=== PATIENT | male | born 1950 | race Caucasian/White ===

== ENCOUNTER 2018-12-26 01:52 | Emergency (ER) | payer OTHER ==
[2018-12-26] MEDS ORDERED: ONDANSETRON HCL INJ/PF 4 MG/2 ML SDV IV ONE (02:33)
[2018-12-26] MEDS ORDERED: FENTANYL CITRATE INJ/PF 100 MCG/2 ML AMPUL IV ONE ×2 (02:33→05:50)
--- NOTE | 2018-12-26 02:36 | ER Document Report ---
ED Medical Screen (RME) - General Chief Complaint: Groin Pain Stated Complaint: ABDOMINAL PAIN Time Seen by Provider: 12/26/18 02:32 Primary Care Provider: JENIFER YOUNG MD [Primary Care Provider] - Follow up as needed Notes: 68 year old male with chief complaint of sudden onset right-sided abdominal pain. He reports nausea but denies vomiting. Denies history of kidney stones, denies flank pain. Past medical history includes cholecystectomy, hernia repair. Also has type 2 diabetes, hypertension. TRAVEL OUTSIDE OF THE [place] IN LAST 30 DAYS: No - Related Data Allergies/Adverse Reactions: latex [Latex] Allergy (Verified 12/26/18 01:57) Past Medical History - Past Medical History Cardiac Medical History: Reports: Hx Hypercholesterolemia, Hx Hypertension - meds x20 yrs Denies: Hx Coronary Artery Disease, Hx Heart Attack Pulmonary Medical History: Reports: Hx Pneumonia - Yrs ago Denies: Hx Asthma, Hx Bronchitis, Hx COPD, Hx Tuberculosis Neurological Medical History: Denies: Hx Cerebrovascular Accident, Hx Seizures Renal/ Medical History: Denies: Hx Benign Prostatic Hyperplasia, Hx End Stage Renal Disease, Hx Kidney Stones, Hx Peritoneal Dialysis GI Medical History: Reports: Hx Gastroesophageal Reflux Disease, Hx Hiatal Hernia. Denies: Hx Crohn's Disease, Hx Irritable Bowel, Hx Liver Failure, Hx Pancreatitis, Hx Ulcer Musculoskeltal Medical History: Reports Hx Arthritis - Hands, knees, Denies Hx Fibromyalgia, Denies Hx Muscular Dystrophy Traumatic Medical History: Denies: Hx Fractures Past Surgical History: Reports: Hx Cholecystectomy, Hx Tonsillectomy. Denies: Hx Appendectomy, Hx Bowel Surgery, Hx Colostomy, Hx Coronary Artery Bypass Graft, Hx Gastric Bypass Surgery, Hx Herniorrhaphy, Hx Pacemaker - Immunizations Hx Diphtheria, Pertussis, Tetanus Vaccination: Yes - Unsure if it was tetanus only Physical Exam - Vital signs Vitals: Temp Pulse Resp BP Pulse Ox 97.6 F 52 L 22 H 169/68 H 96 12/26/18 02:03 12/26/18 02:03 12/26/18 02:03 12/26/18 02:03 12/26/18 02:03 - Abdominal Tenderness: Tender - Tender in the right lower abdomen, there appears to be an incarcerated right inguinal hernia that I cannot reduce in triage Course - Re-evaluation Re-evalutation: Exam very concerning for incarcerated right inguinal hernia. Upgraded to triage level 2, called charge nurse and requested room immediately. I have greeted and performed a rapid initial assessment of this patient. A comprehensive ED assessment and evaluation of the patient, analysis of test results and completion of the medical decision making process will be conducted by additional ED providers. - Vital Signs Vital signs: Temp Pulse Resp BP Pulse Ox 97.6 F 52 L 22 H 169/68 H 96 12/26/18 02:03 12/26/18 02:03 12/26/18 02:03 12/26/18 02:03 12/26/18 02:03 Doctor's Discharge - Discharge Referrals: JENIFER YOUNG MD [Primary Care Provider] - Follow up as needed
--- NOTE | 2018-12-26 02:45 | ER Document Report ---
ED General - General Chief Complaint: Groin Pain Stated Complaint: ABDOMINAL PAIN Time Seen by Provider: 12/26/18 02:32 Primary Care Provider: JENIFER YOUNG MD [ACTIVE STAFF] - Follow up as needed Notes: Patient is a 68-year-old male with hypertension and diabetes mellitus that presents to the emergency department for chief complaint of inguinal hernia and pain. Patient states that his pain started this evening, he noticed swelling in his right groin, started around 8 PM, more than he is ever noticed before, he a lways had a small bulge there, because he had a prior hernia repair in the past, but it got significantly larger this past evening. He has associated nausea, borderline dry heaving, but no vomiting. He denies having any recent fevers, chills, night sweats, chest pain, shortness of breath or difficulty breathing. He currently rates his pain as a 10 out of 10 describes it as a severe stabbing type pain, and his right groin, that is constant in nature. Past Medical History: Hypertension, diabetes mellitus Past Surgical History: Hernia repair, cholecystectomy Social History: Denies tobacco, alcohol or drug use. Family History: Reviewed and noncontributory for presenting illness Allergies: Reviewed, see documented allergy list. REVIEW OF SYSTEMS: Other than noted above, the 12 point review of systems was reviewed with the patient and were negative, all pertinent findings are included in the HPI. PHYSICAL EXAMINATION: Vital signs reviewed, nursing noted reviewed. GENERAL: Patient appears uncomfortable on exam, but in no immediate distress HEAD: Atraumatic, normocephalic. EYES: Eyes appear normal, extraocular movements intact, sclera anicteric, conjunctiva are normal. ENT: nares patent, oropharynx clear without exudates. Moist mucous membranes. NECK: Normal range of motion, supple without lymphadenopathy LUNGS: Breath sounds clear to auscultation bilaterally and equal. No wheezes rales or rhonchi. HEART: Regular rate and rhythm without murmurs ABDOMEN: Soft, diminished bowel sounds, hypoactive, there is a right palpable inguinal hernia, which I am unable to reduce, at bedside, there is tenderness with palpation to this area. EXTREMITIES: Nontender, good range of motion, no pitting or edema. NEUROLOGICAL: No focal neurological deficits. Moves all extremities spontaneously Motor and sensory grossly intact on exam. PSYCH: Normal mood, normal affect. SKIN: Warm, Dry, normal turgor, no rashes or lesions noted on exposed skin TRAVEL OUTSIDE OF THE [place] IN LAST 30 DAYS: No - Related Data Allergies/Adverse Reactions: latex [Latex] Allergy (Verified 12/26/18 01:57) Past Medical History - Social History Smoking Status: Never Smoker Family History: Reviewed & Not Pertinent - Past Medical History Cardiac Medical History: Reports: Hx Hypercholesterolemia, Hx Hypertension - meds x20 yrs Denies: Hx Coronary Artery Disease, Hx Heart Attack Pulmonary Medical History: Reports: Hx Pneumonia - Yrs ago Denies: Hx Asthma, Hx Bronchitis, Hx COPD, Hx Tuberculosis Neurological Medical History: Denies: Hx Cerebrovascular Accident, Hx Seizures Renal/ Medical History: Denies: Hx Benign Prostatic Hyperplasia, Hx End Stage Renal Disease, Hx Kidney Stones, Hx Peritoneal Dialysis GI Medical History: Reports: Hx Gastroesophageal Reflux Disease, Hx Hiatal Her patti. Denies: Hx Crohn's Disease, Hx Irritable Bowel, Hx Liver Failure, Hx Pancreatitis, Hx Ulcer Musculoskeletal Medical History: Reports Hx Arthritis - Hands, knees, Denies Hx Fibromyalgia, Denies Hx Muscular Dystrophy Traumatic Medical History: Denies: Hx Fractures Past Surgical History: Reports: Hx Cholecystectomy, Hx Tonsillectomy. Denies: Hx Appendectomy, Hx Bowel Surgery, Hx Colostomy, Hx Coronary Artery Bypass Gr aft, Hx Gastric Bypass Surgery, Hx Herniorrhaphy, Hx Pacemaker - Immunizations Hx Diphtheria, Pertussis, Tetanus Vaccination: Yes - Unsure if it was tetanus only Hx Pneumococcal Vaccination: 05/05/09 Physical Exam - Vital signs Vitals: Temp Pulse Resp BP Pulse Ox 97.6 F 52 L 22 H 169/68 H 96 12/26/18 02:03 12/26/18 02:03 12/26/18 02:03 12/26/18 02:03 12/26/18 02:03 Course - Re-evaluation Re-evalutation: Patient seen and examined vital signs reviewed. Laboratory data and imaging were ordered as appropriate for the patient's presenting symptoms and complaint, with consideration of any critical or life threatening conditions that may be associated with their obtained history and exam as noted above. Patient was treated with IV fluids, IV fentanyl, and Zofran, a call was placed to the surgeon, as he could not initially reduce the patient's hernia, wanted to make him aware that the patient had an incarcerated hernia, he requested that I order CT imaging with oral contrast. Results were reviewed when available and demonstrated unremarkable blood work for the most part, negative lactic acid, CT imaging was ordered, that demonstrated a bowel containing right inguinal hernia, with air-fluid levels in the small bowel, and the distal colon appeared to be decompressed as well, concerning for incarcerated hernia. The patient was re-evaluated and was improved from a pain standpoint, despite Trendelenburg, and attempts to reduce the patient's hernia, these were u nsuccessful, at this point call was placed to surgery, and they did come to see the patient and evaluated them. Evaluation was most consistent with incarcerated inguinal hernia Results were discussed with the patient at this point after careful consideration I feel that that patient should be admitted to the hospital. This was discussed with the patient that it is in the best interest for their care to be admitted for further evaluation and management. Patient agreed with this plan of care. A call was placed to the admitted physician, Dr. Levine who graciously accepted the patient onto their service, with plan for operative management. Patient was kept n.p.o. during his entire ED course with the exception of his oral contrast. *Note is created using voice recognition software and may contain spelling, syntax or grammatical errors. Laboratory 12/26/18 12/26/18 12/26/18 03:03 03:03 03:03 WBC 7.2 RBC 4.75 Hgb 13.0 L Hct 39.3 MCV 83 MCH 27.4 MCHC 33.1 RDW 14.3 H Plt Count 160 Seg Neutrophils % 86.3 H Lymphocytes % 9.1 L Monocytes % 4.1 Eosinophils % 0.1 Basophils % 0.4 Absolute Neutrophils 6.2 Absolute Lymphocytes 0.7 Absolute Monocytes 0.3 Absolute Eosinophils 0.0 Absolute Basophils 0.0 Sodium 139.8 Potassium 4.0 Chloride 104 Carbon Dioxide 26 Anion Gap 10 BUN 22 H Creatinine 1.05 Est GFR ( Amer) > 60 Est GFR (Non-Af Amer) > 60 Glucose 163 H Lactic Acid 1.7 Calcium 9.9 Total Bilirubin 0.4 Direct Bilirubin 0.4 Neonat Total Bilirubin Not Reportable Neonat Direct Bilirubin Not Reportable Neonat Indirect Bili Not Reportable AST 25 ALT 29 Alkaline Phosphatase 67 Total Protein 6.9 Albumin 4.2 Abdomen/Pelvis CT 12/26/18 03:25 IMPRESSION: Right inguinal hernia containing short segment of small bowel, causing mild small bowel obstruction. - Vital Signs Vital signs: Temp Pulse Resp BP Pulse Ox 97.6 F 52 L 22 H 152/72 H 98 12/26/18 02:03 12/26/18 02:03 12/26/18 02:03 12/26/18 05:01 12/26/18 05:01 - Laboratory Result Diagrams: 12/26/18 03:03 12/26/18 03:03 Laboratory results interpreted by me: 12/26/18 12/26/18 03:03 03:03 Hgb 13.0 L RDW 14.3 H Seg Neutrophils % 86.3 H Lymphocytes % 9.1 L BUN 22 H Glucose 163 H Discharge - Discharge Clinical Impression: Incarcerated inguinal hernia, Small bowel obstruction Condition: Stable Disposition: ADMITTED INPATIENT Admitting Provider: Surgicalist - Dr. Levine Unit Admitted: Surgical Floor Referrals: JENIFER YOUNG MD [ACTIVE STAFF] - Follow up as needed
[2018-12-26 03:15] LABS: ABSOLUTE LYMPHOCYTES (AUTO) 0.7 10^3/uL (0.5-4.7); ABSOLUTE MONOCYTES (AUTO) 0.3 10^3/uL (0.1-1.4); ABSOLUTE NEUT (AUTO) 6.2 10^3/uL (1.7-8.2); BASOPHILS % (AUTO) 0.4 % (0-2); EOSINOPHILS % (AUTO) 0.1 % (0-6); HEMATOCRIT 39.3 % (37.9-51.0); LYMPHOCYTES % (AUTO) 9.1 % (13-45); MEAN CORPUSCULAR HEMOGLOBIN 27.4 pg (27.0-33.4); MEAN CORPUSCULAR HGB CONC 33.1 g/dL (32.0-36.0); MEAN CORPUSCULAR VOLUME 83 fl (80-97); MONOCYTES % (AUTO) 4.1 % (3-13); PLATELET COUNT 160 10^3/uL (150-450); RED BLOOD COUNT 4.75 10^6/uL (4.35-5.55); RED CELL DISTRIBUTION WIDTH 14.3 % (11.5-14.0); SEGMENTED NEUTROPHILS % (AUTO) 86.3 % (42-78); TOTAL CELLS COUNTED % (AUTO) 100 %; WHITE BLOOD COUNT 7.2 10^3/uL (4.0-10.5)
[2018-12-26 03:30] LABS: ALANINE AMINOTRANSFERASE 29 U/L (21-72); ALBUMIN 4.2 g/dL (3.5-5.0); ALKALINE PHOSPHATASE 67 U/L (38-126); ANION GAP 10 (5-19); ASPARTATE AMINO TRANSFERASE 25 U/L (17-59); BILIRUBIN,DIRECT 0.4 mg/dL (0.0-0.4); BILIRUBIN,TOTAL 0.4 mg/dL (0.2-1.3); BLOOD UREA NITROGEN 22 mg/dL (7-20); CALCIUM 9.9 mg/dL (8.4-10.2); CARBON DIOXIDE 26 mmol/L (22-30); CHLORIDE 104 mmol/L (98-107); GLUCOSE 163 mg/dL (75-110); SODIUM 139.8 mmol/L (137-145); TOTAL PROTEIN 6.9 g/dL (6.3-8.2)
--- NOTE | 2018-12-26 06:19 | RADIOLOGY REPORT (SQ) ---
CLINICAL HISTORY: right inguinal hernia COMPARISON: None. TECHNIQUE: CT ABDOMEN PELVIS WITHOUT IV CONTRAST on 12/26/2018 3:25 AM CDT This exam was performed according to our departmental dose-optimization program, which includes automated exposure control, adjustment of the mA and/or kV according to patient size and/or use of iterative reconstruction technique. FINDINGS: Lower lungs are clear. Abdomen: The liver is normal in appearance. There is no biliary dilatation. Cholecystectomy was performed. Stomach is distended. There is mild pneumobilia. The pancreas and spleen are normal in appearance. There is mild fullness of the renal collecting systems. Adrenal glands are normal. Abdominal aorta is normal in course and caliber without aneurysm. There is no free air. There is no retroperitoneal adenopathy. Pelvis: Small bowel proximal to the hernia is dilated. Urinary bladder is mildly distended. There is no free fluid. Prostate is enlarged measuring 6.8 cm. There is a small fat-containing left inguinal hernia. Right inguinal hernia contains portion of the distal small bowel. Appendix is normal. Skeleton: There are no acute osseous findings. No suspicious bony lesions. IMPRESSION: Right inguinal hernia containing short segment of small bowel, causing mild small bowel obstruction.
[2018-12-26] MEDS ORDERED: NORMAL SALINE 1000 ML 1,000 ML IV ONE (06:20)
[2018-12-26 06:28] VITALS: BP 153/79
--- NOTE | 2018-12-26 06:44 | PDOC H&P ---
History of Present Illness Admission Date/PCP: GASTON FORTUNE MD Patient complains of: right inguinal pains History of Present Illness: MICKIE TAVERAS is a 68 year old male with history of DM and hypertension suddenly c/o painful lump on the right inguinal area associated with nausea at 8 pm last night. Had history of right inguinal hernia 20 years ago. Unable to reduce right inguinal hernia in ED. Had CT scan of abd/pelvis which showed incarcerated right inguinal hernia with some air fluid levels in small bowel that are slightly dilated indicating some obstruction. . Past Medical History Cardiac Medical History: Reports: Hyperlipidema, Hypertension - meds x20 yrs Denies: Coronary Artery Disease, Myocardial Infarction Pulmonary Medical History: Reports: Pneumonia - Yrs ago Denies: Asthma, Bronchitis, Chronic Obstructive Pulmonary Disease (COPD), Tuberculosis Neurological Medical History: Denies: Seizures Renal/ Medical History: Denies: End Stage Renal Disease GI Medical History: Reports: Gastroesophageal Reflux Disease, Hiatal Hernia Denies: Crohn's Disease Musculoskeltal Medical History: Reports: Arthritis - Hands, knees Denies: Fibromyalgia Hematology: Denies: Anemia Past Surgical History Past Surgical History: Reports: Cholecystectomy, Tonsillectomy Denies: Appendectomy, Colostomy, Coronary Artery Bypass Graft, Gastric Bypass Surgery, Herniorrhaphy, Pacemaker Social History Smoking Status: Never Smoker Hx Recreational Drug Use: No Hx Prescription Drug Abuse: No Family History Family History: Reviewed & Not Pertinent Parental Family History Reviewed: Yes Children Family History Reviewed: No Sibling(s) Family History Reviewed.: No Medication/Allergy Home Medications: Doxycycline Hyclate 100 mg PO BID 06/04/12 Lisinopril/Hydrochlorothiazide [Zestoretic 20-12.5 Mg Tablet] 1 tab PO DAILY 06/04/12 Fenofibrate,Micronized [Lofibra] 145 mg PO DAILY 07/20/15 Omeprazole [Prilosec] 40 mg PO DAILY 07/20/15 Sucralfate [Carafate 1 gm Tablet] 1 gm PO ACHS #120 tablet 07/20/15 Tramadol HCl 50 mg PO BID 08/09/15 Allergies/Adverse Reactions: latex [Latex] Allergy (Verified 12/26/18 01:57) Review of Systems Constitutional: PRESENT: as per HPI, other - no fever/chills Ears: PRESENT: other - no visual/hearing changes Cardiovascular: PRESENT: other - no chest pains/cough Gastrointestinal: PRESENT: other - right inguinal pains with nausea Physical Exam Vital Signs: Temp Pulse Resp BP Pulse Ox 97.6 F 52 L 22 H 153/79 H 97 12/26/18 02:03 12/26/18 02:03 12/26/18 02:03 12/26/18 06:01 12/26/18 06:01 Intake & Output 12/24/18 12/25/18 12/26/18 06:59 06:59 06:59 Output Total 625 Balance -625 Weight 88.451 kg General appearance: PRESENT: mild distress Head exam: PRESENT: atraumatic Eye exam: PRESENT: conjunctiva pink Mouth exam: PRESENT: moist Neck exam: PRESENT: full ROM Respiratory exam: PRESENT: clear to auscultation yahir Cardiovascular exam: PRESENT: RRR Pulses: PRESENT: normal radial pulses Vascular exam: PRESENT: normal capillary refill GI/Abdominal exam: PRESENT: soft, tenderness - right groin mass,irreducible Rectal exam: PRESENT: deferred Extremities exam: PRESENT: full ROM Musculoskeletal exam: PRESENT: ambulatory Neurological exam: PRESENT: alert, oriented to person, oriented to place, oriented to time, oriented to situation Psychiatric exam: PRESENT: appropriate affect Skin exam: PRESENT: normal color, warm Results Laboratory Results: 12/26/18 03:03 12/26/18 03:03 12/26/18 12/26/18 12/26/18 03:03 03:03 03:03 WBC 7.2 RBC 4.75 Hgb 13.0 L Hct 39.3 MCV 83 MCH 27.4 MCHC 33.1 RDW 14.3 H Plt Count 160 Seg Neutrophils % 86.3 H Lymphocytes % 9.1 L Monocytes % 4.1 Eosinophils % 0.1 Basophils % 0.4 Absolute Neutrophils 6.2 Absolute Lymphocytes 0.7 Absolute Monocytes 0.3 Absolute Eosinophils 0.0 Absolute Basophils 0.0 Sodium 139.8 Potassium 4.0 Chloride 104 Carbon Dioxide 26 Anion Gap 10 BUN 22 H Creatinine 1.05 Est GFR ( Amer) > 60 Est GFR (Non-Af Amer) > 60 Glucose 163 H Lactic Acid 1.7 Calcium 9.9 Total Bilirubin 0.4 AST 25 ALT 29 Alkaline Phosphatase 67 Total Protein 6.9 Albumin 4.2 Impressions: Abdomen/Pelvis CT 05/24/19 03:25 IMPRESSION: Right inguinal hernia containing short segment of small bowel, causing mild small bowel obstruction. Assessment & Plan - Diagnosis (1) DM Is this a current diagnosis for this admission?: Yes (2) Incarcerated inguinal hernia Is this a current diagnosis for this admission?: Yes (3) Small bowel obstruction Is this a current diagnosis for this admission?: Yes - Time Time Spent: 30 to 50 Minutes - Inpatient Certification Medical Necessity: Need for Surgery - Plan Summary Plan Summary: Hydrate For reduction and repair of incarcerated right inguinal hernia
--- NOTE | 2018-12-26 07:27 | RADIOLOGY REPORT (SQ) ---
EXAM DESCRIPTION: XR CHEST 1 VIEW COMPLETED DATE/TME: 12/26/2018 06:25 CLINICAL HISTORY: 68 years Male, preoperative COMPARISON: None. NUMBER OF VIEWS/TECHNIQUE: 1/AP FINDINGS: Adequate lung volume, clear parenchyma, normal cardiac silhouette, and intact bony thorax. IMPRESSION: No acute cardiopulmonary findings.
[2018-12-26] MEDS ORDERED: HYDROMORPHONE HCL INJ/PF 2 MG/ML AMPULE IV ONE (07:41)
--- NOTE | 2018-12-26 08:26 | PDOC PROGRESS REPORT ---
Subjective Progress Note for:: 12/26/18 Reason For Visit: INCARCERATED INGUINAL HERNIA Physical Exam Vital Signs: Temp Pulse Resp BP Pulse Ox 97.6 F 52 L 22 H 153/79 H 97 12/26/18 02:03 12/26/18 02:03 12/26/18 02:03 12/26/18 06:01 12/26/18 06:01 Intake & Output 12/25/18 12/26/18 12/27/18 06:59 06:59 06:59 Output Total 625 Balance -625 Weight 88.451 kg General appearance: PRESENT: no acute distress Head exam: PRESENT: normocephalic Eye exam: PRESENT: EOMI Mouth exam: PRESENT: moist Neck exam: PRESENT: full ROM Respiratory exam: PRESENT: clear to auscultation yahir Cardiovascular exam: PRESENT: RRR Pulses: PRESENT: normal radial pulses, normal femoral pulses GI/Abdominal exam: PRESENT: other - incarcerated rih, reduced with min pressure Rectal exam: PRESENT: deferred Gentrourinary exam: PRESENT: testicular tenderness Extremities exam: PRESENT: full ROM Musculoskeletal exam: PRESENT: full ROM Neurological exam: PRESENT: alert, awake, oriented to person, oriented to place Psychiatric exam: PRESENT: appropriate affect Skin exam: PRESENT: dry Results Laboratory Results: 12/26/18 03:03 12/26/18 03:03 12/26/18 12/26/18 12/26/18 03:03 03:03 03:03 WBC 7.2 RBC 4.75 Hgb 13.0 L Hct 39.3 MCV 83 MCH 27.4 MCHC 33.1 RDW 14.3 H Plt Count 160 Seg Neutrophils % 86.3 H Lymphocytes % 9.1 L Monocytes % 4.1 Eosinophils % 0.1 Basophils % 0.4 Absolute Neutrophils 6.2 Absolute Lymphocytes 0.7 Absolute Monocytes 0.3 Absolute Eosinophils 0.0 Absolute Basophils 0.0 Sodium 139.8 Potassium 4.0 Chloride 104 Carbon Dioxide 26 Anion Gap 10 BUN 22 H Creatinine 1.05 Est GFR ( Amer) > 60 Est GFR (Non-Af Amer) > 60 Glucose 163 H Lactic Acid 1.7 Calcium 9.9 Total Bilirubin 0.4 AST 25 ALT 29 Alkaline Phosphatase 67 Total Protein 6.9 Albumin 4.2 Impressions: Abdomen/Pelvis CT 12/26/18 03:25 IMPRESSION: Right inguinal hernia containing short segment of small bowel, causing mild small bowel obstruction. Chest X-Ray 12/26/18 06:25 IMPRESSION: No acute cardiopulmonary findings. Assessment & Plan - Diagnosis (1) Incarcerated inguinal hernia Is this a current diagnosis for this admission?: Yes - Plan Summary Plan Summary: pt w;ith incarcerated rih reduced with min pressure will dc home today from er will appoint for elective laparoscopic rih repair
--- NOTE | 2018-12-26 22:37 | EKG REPORT ---
SEVERITY:- ABNORMAL ECG - SINUS BRADYCARDIA LEFT VENTRICULAR HYPERTROPHY : Confirmed by: Alison Mejia 26-Dec-2018 22:36:38
== END 2018-12-26 09:27 | disposition home or self-care (01) ==
LOC: ER 01:52 → EH 06:32 → UNDOADMIN 06:32 → UNDODISIN 09:27
DX: K40.30 Unilateral inguinal hernia, with obstruction, without gangrene, not specified as recurrent (principal); K56.609 Unspecified intestinal obstruction, unspecified as to partial versus complete obstruction; I10 Essential (primary) hypertension; E11.9 Type 2 diabetes mellitus without complications; E78.00 Pure hypercholesterolemia, unspecified; Z90.49 Acquired absence of other specified parts of digestive tract; Z91.040 Latex allergy status
CPT/HCPCS: 93005; 99285; 96374; 96375; 36415; 83605; 85025; 80053; 71045; 74176; 93010; J3010; J1170; J2405; J7030

== ENCOUNTER 2019-02-04 08:02 | Day surgery (SDC) | payer OTHER ==
[2019-01-28 10:10] LABS: HEMATOCRIT 40.5 % (37.9-51.0); HEMOGLOBIN 13.4 g/dL (13.5-17.0); MEAN CORPUSCULAR HEMOGLOBIN 27.4 pg (27.0-33.4); MEAN CORPUSCULAR HGB CONC 33.2 g/dL (32.0-36.0); MEAN CORPUSCULAR VOLUME 83 fl (80-97); PLATELET COUNT 157 10^3/uL (150-450); RED CELL DISTRIBUTION WIDTH 14.6 % (11.5-14.0); WHITE BLOOD COUNT 4.9 10^3/uL (4.0-10.5)
[2019-01-28 10:35] LABS: ANION GAP 8 (5-19); BLOOD UREA NITROGEN 27 mg/dL (7-20); CALCIUM 9.4 mg/dL (8.4-10.2); CARBON DIOXIDE 28 mmol/L (22-30); CHLORIDE 105 mmol/L (98-107); GLUCOSE 136 mg/dL (75-110); POTASSIUM 4.3 mmol/L (3.6-5.0); SODIUM 140.7 mmol/L (137-145)
--- NOTE | 2019-01-28 22:10 | EKG REPORT ---
SEVERITY:- NORMAL ECG - SINUS RHYTHM : Confirmed by: Alison Mejia 28-Jan-2019 22:09:33
[~2019-02-04 08:02] MED LIST: CEFAZOLIN 1 GM/D5W RTU 1 GM/50 ML RTUPB IV ONE; CEFAZOLIN 1 GM/D5W RTU 1 GM/50 ML RTUPB IV PRN
[2019-02-04] MEDS ORDERED: BUPIVACAINE HCL 0.25% /EPINEPHRINE INJ/PF 30 ML SDV ONE (09:12)
[2019-02-04] MEDS ORDERED: PROPOFOL INJ 200 MG/20 ML VIAL IV ONE (09:37)
[2019-02-04] MEDS ORDERED: FENTANYL CITRATE INJ/PF 250 MCG/5 ML AMPULE ONE (09:37)
[2019-02-04] MEDS ORDERED: MIDAZOLAM 2 MG/2 ML INJ ONE (09:37)
[2019-02-04] MEDS ORDERED: PROMETHAZINE HCL INJ 25 MG/1 ML VIAL IV PRN ×2 (10:22)
[2019-02-04] MEDS ORDERED: FENTANYL CITRATE INJ/PF 100 MCG/2 ML AMPUL IV PRN ×3 (10:22)
[2019-02-04] MEDS ORDERED: DIPHENHYDRAMINE HCL 50 MG/ML VIAL IV PRN (10:22)
[2019-02-04] MEDS ORDERED: MEPERIDINE HCL/PF INJ 25 MG/1 ML DISP.SYRIN IV PRN (10:22)
[2019-02-04] MEDS ORDERED: MORPHINE SULFATE 10 MG/ML INJ IV PRN (10:22)
[2019-02-04] MEDS ORDERED: OXYCODONE-ACETAMINOPHEN 5-325 MG TABLET PO PRN ×2 (10:22)
--- NOTE | 2019-02-04 11:31 | Operative Report ---
Operative Report DATE OF SURGERY: 02/04/19 PREOPERATIVE DIAGNOSIS: rih POSTOPERATIVE DIAGNOSIS: rih and lih OPERATION: bilateral laparoscopic inguinal hernia repair SURGEON: NEGRITA SOLER [employer] HELPER: YOANNA PASTOR ANESTHESIA: GA TISSUE REMOVED OR ALTERED: none COMPLICATIONS: none ESTIMATED BLOOD LOSS: 0
--- NOTE | 2019-02-04 11:35 | Discharge Summary ---
Discharge Summary (SDC) - Discharge Final Diagnosis: bilateral inguinal hernia Date of Surgery: 02/04/19 Condition: Good Treatment or Instructions: no wt greater than 10lbs for 6wks Referrals: GASTON FORTUNE MD [Primary Care Provider] - Discharge Diet: As Tolerated Discharge Activity: Activity As Tolerated, No Lifting Over 10 Pounds Report the Following to Your Physician Immediately: Shortness of Breath, Nausea, Vomiting, Increase in Pain - needs f/u with me in 1-2 wks.
--- NOTE | 2019-02-04 12:10 | OPERATIVE REPORT E ---
Operative Report NAME: MICKIE TAVERAS : 1950 AGE: 68Y DATE OF SURGERY: 02/04/2019 ROOM: PREOPERATIVE DIAGNOSIS: Right inguinal hernia. POSTOPERATIVE DIAGNOSIS: Bilateral inguinal hernias. OPERATIVE PROCEDURE: Bilateral laparoscopic inguinal hernia repair. SURGEON: NEGRITA SOLER M.D. EMPLOYEE RELATIONS MANAGER: MIGUEL Nevarez who was present for the entire case for wound retraction and wound closure. ANESTHESIA: General. PROCEDURE: The patient was brought to the operating room in awake, alert, and stable condition, placed on the operating table in supine position, induced under general anesthesia, and intubated. A Zurita catheter was placed. The abdomen was prepped and draped in the usual sterile fashion. An infraumbilical 10 mm long incision was made with a #15 blade. Dissection was carried down through the subcutaneous tissue with Bovie cautery. The fascia of the rectus muscle was identified, and it was opened transversely with a #15 blade, and the rectus muscle was retracted laterally. The Spacemaker balloon was then placed underneath the rectus muscle on top of the posterior sheath and manipulated down to the pubic symphysis and inflated under direct vision to create the space. The Spacemaker balloon was then removed. The William-type balloon-tipped port was then placed in through that incision and the balloon insufflated. Under direct vision we placed two additional 5 mm ports in the midline. Attention was first turned to the right side. The patient's peritoneum was dissected away from the lateral abdominal wall. Transversalis fascia was identified and we continued our dissection medially to improve the space and to dissect the peritoneum away from the transversalis fascia. Once this was completed we continued this dissection medially until we identified the Jeremy ligament and the rectus muscle anteriorly. The cord structures were identified and were placed on traction. We mobilized the sac away from the cord structures and noted a lipoma and sac extending down along the lateral aspect of the cord structures into the inguinal canal consistent with an indirect inguinal hernia. Once I posteriorized the peritoneum away from the cord structures, we created a space behind the cord structures. We then used a piece of polypropylene mesh cut 6 x 4 cm in diameter with a slit down the side and placed them into the retroperitoneum, fixed it posteriorly to the Jeremy ligament, anterior to the rectus fascia, laterally to the transversalis fascia, and wrapped the cord and fixed those in place with AbsorbaTacks. Once this was completed on the right side we turned attention to the left side. We mobilized the peritoneum away from the lateral abdominal wall to identify the transversalis fascia laterally and once doing that identified the cord structures. The cord structures were clear of any peritoneum and there was no evidence of an indirect inguinal hernia; however, there was a large direct inguinal hernia that we noted anteriorly in Hesselbach triangle. It reduced spontaneously, but we did notice the defect. We then used a similar piece of mesh, polypropylene, with a slit down the side, 6 x 4 cm, passed it into the retroperitoneum and fixed it posteriorly to Jeremy ligament, anterior to the rectus fascia, and laterally to the transversalis fascia, wrapping the cord structures. Once this was completed both the hernia defects were closed well with the mesh. We reduced the pneumoperitoneum under direct vision, allowing the peritoneum to come up and lie against the mesh, and then removed the ports. We closed the umbilical fascial defect with 0 Vicryl and then closed all 3 skin incisions with intracuticular 4-0 Caprosyn. Steri-Strips completed the procedure. Estimated blood loss was negligible. Sponge and needle counts were correct x2. The patient was awakened in the operating room, extubated, and transferred to the recovery room in stable condition, no complications. DICTATING PHYSICIAN: NEGRITA SOLER M.D. [id number] PHY#: [id number] ID: [id number] JOB#: [id number] ACCT: [id number] cc:NEGRITA SOLER M.D. >
[2019-02-04] MEDS ORDERED: OXYCODONE-ACETAMINOPHEN 5-325 MG TABLET ONE (12:11)
[2019-02-04] MEDS ORDERED: EPHEDRINE SULFATE INJ 50 MG/1 ML AMPULE ONE (14:12)
[2019-02-04 14:36] VITALS: BP 112/78
[2019-02-04] MEDS ORDERED: LIDOCAINE 2% INJ-PF (20 MG/ML) 2 ML AMPUL ONE (17:30)
[2019-02-04] MEDS ORDERED: NEOSTIGMINE METHYLSULFATE 10 MG/10 ML VIAL ONE (17:30)
[2019-02-04] MEDS ORDERED: GLYCOPYRROLATE 1 MG/5 ML VIAL ONE (17:30)
[2019-02-04] MEDS ORDERED: ONDANSETRON HCL INJ/PF 4 MG/2 ML SDV ONE (17:30)
[2019-02-04] MEDS ORDERED: DEXAMETHASONE SOD PHOSPHATE INJ 4 MG/1 ML VIAL ONE (17:30)
[2019-02-04] MEDS ORDERED: ROCURONIUM BROMIDE INJ 50 MG/5 ML VIAL IV ONE (17:30)
[2019-02-04] MEDS ORDERED: KETOROLAC TROMETHAMINE 60 MG/2 ML SDV ONE (17:30)
== END 2019-02-04 14:20 | disposition home or self-care (01) ==
LOC: OROUT 08:02
PROVIDERS: ATTEND Surgery
DX: K40.90 Unilateral inguinal hernia, without obstruction or gangrene, not specified as recurrent (principal); K21.9 Gastro-esophageal reflux disease without esophagitis; E11.9 Type 2 diabetes mellitus without complications; I10 Essential (primary) hypertension; Z79.84 Long term (current) use of oral hypoglycemic drugs; Z79.899 Other long term (current) drug therapy; K40.20 Bilateral inguinal hernia, without obstruction or gangrene, not specified as recurrent
CPT/HCPCS: 93005; 36415 ×2; 82962; 84132; 85027; 80048; 93010; 00840; 49650; C1781; J2250; J3490 ×5; J0690; J1100; J1885; J3010; J2710; J2405; J2704; 840